=== PATIENT | female | born 1965 | race Caucasian/White ===

== ENCOUNTER → 2017-10-20 10:31 | Outpatient (CLI) | payer OTHER, SELFPAY ==
[2017-10-20 11:02] LABS: Influenza A and B by PCR Rapid Negative (Negative)
== END ==
PROVIDERS: Family Provider Family Medicine; PCP Family Medicine; Visit Provider Family Medicine
DX: R05 Cough (principal); R50.9 Fever, unspecified
CPT/HCPCS: 87400

== ENCOUNTER → 2017-10-23 15:27 | Outpatient (CLI) | payer OTHER, SELFPAY ==
--- NOTE | 2017-10-23 15:29 | DI.RAD.S_ITS ---
PROCEDURE: XR CHEST 2V INDICATIONS: cough TECHNIQUE: 2 views of the chest were acquired. COMPARISON: [facility], RG, XR RIBS UNILATERAL WITH CXR, 05/14/2003, 9:47. FINDINGS: Surgical changes and devices: None. Lungs and pleura: No pleural effusions or pneumothorax. Lungs are clear, aside from lingular and left basilar airspace opacity Mediastinum: Mediastinal contours are normal. Heart size is normal. Bones and chest wall: No suspicious bony abnormalities. Soft tissues appear unremarkable. IMPRESSION: Lingular and left basilar airspace opacity suggestive of aspiration or pneumonia. Underlying neoplasm cannot be excluded. A followup chest radiographs in approximately 4 weeks is recommended to document resolution. Dictated by: See Cm [facility] Interpreted: Shaw Sellers MD on 10/23/2017 at 15:40 Approved by: hSaw Sellers M.D. on 10/23/2017 at 17:26
== END ==
PROVIDERS: Family Provider Family Medicine; PCP Family Medicine; Visit Provider Family Medicine
DX: R05 Cough (principal)
CPT/HCPCS: 71046

== ENCOUNTER → 2017-12-06 08:32 | Outpatient (CLI) | payer OTHER, SELFPAY ==
--- NOTE | 2017-12-06 08:34 | DI.RAD.S_ITS ---
PROCEDURE: XR CHEST 2V INDICATIONS: Pneumonia, unspecified organism TECHNIQUE: 2 views of the chest were acquired. COMPARISON: [facility], CR, XR CHEST 2V, 10/23/2017, 15:09. FINDINGS: Surgical changes and devices: None. Lungs and pleura: No pleural effusions or pneumothorax. Lungs are clear. Mediastinum: Mediastinal contours are normal. Heart size is normal. Bones and chest wall: No suspicious bony abnormalities. T12 level mild to moderate compression fracture. This was also present in October of this year. Soft tissues appear unremarkable. IMPRESSION: No pneumonia found. Mild to moderate thoracolumbar junction compression fracture, involving what appears to be the T12 vertebral body, with mild focal kyphosis at that site. This has been previously present. Dictated by: Carlin Godfrey M.D. on 12/06/2017 at 8:56 Approved by: Carlin Godfrey M.D. on 12/06/2017 at 8:57
== END ==
PROVIDERS: PCP Internal Medicine; Visit Provider Internal Medicine
DX: J18.9 Pneumonia, unspecified organism (principal); M48.55XD Collapsed vertebra, not elsewhere classified, thoracolumbar region, subsequent encounter for fracture with routine healing; M40.295 Other kyphosis, thoracolumbar region
CPT/HCPCS: 71046

== ENCOUNTER → 2018-02-08 08:08 | Outpatient (CLI) | payer OTHER, SELFPAY | PROVIDERS: Family Provider Family Medicine; PCP Family Medicine | DX: Z23 Encounter for immunization (principal) | CPT/HCPCS: 90471; 90686 ==

== ENCOUNTER → 2018-06-06 07:37 | Outpatient (CLI) | payer OTHER, SELFPAY ==
[2018-06-06 09:06] LABS: Alanine Aminotransferase 30 IU/L (9-52); Albumin 4.8 g/dL (3.5-5.0); Albumin Globulin Ratio 1.5 (1.0-2.8); Alkaline Phosphatase 78 U/L (38-126); Aspartate Aminotransferase 27 IU/L (14-36); BUN Creatinine Ratio 27.1 (6-22); Bilirubin Total 0.3 mg/dL (0.2-1.3); Blood Urea Nitrogen 19 mg/dL (7-17); Calcium 9.6 mg/dL (8.4-10.2); Carbon Dioxide 29 mmol/L (22-32); Chloride 103 mmol/L (98-107); Cholesterol 230 mg/dL (140-199); Estimated Glomerular Filt Rate > 60.0 mL/min (>60); Globulin 3.1 g/dL (1.7-4.1); Glucose 85 mg/dL (70-100); HDL Cholesterol 70 mg/dL (40-60); HEMOLYSIS < 15 (0-50); LDL Cholesterol Calculated 148 mg/dL (<100); Potassium 4.1 mmol/L (3.4-5.1); Sodium 141 mmol/L (137-145); Total Protein 7.9 g/dL (6.3-8.2); Triglycerides 61 mg/dL (35-150)
== END ==
PROVIDERS: Family Provider Family Medicine; PCP Family Medicine; Visit Provider Family Medicine
DX: F41.9 Anxiety disorder, unspecified (principal); Z13.220 Encounter for screening for lipoid disorders
CPT/HCPCS: 36415; 80053; 80061

== ENCOUNTER → 2018-11-16 15:15 | Outpatient (CLI) | payer OTHER, SELFPAY ==
--- NOTE | 2018-11-16 15:17 | DI.RAD.S_ITS ---
PROCEDURE: XR FOOT LT MIN 3V INDICATIONS: 3 rd MTP pain, stress fracture?, neuroma TECHNIQUE: 3 views of the foot were acquired. COMPARISON: [facility], , FOOT 3V RIGHT, 09/30/2014, 11:39. FINDINGS: Bones: No fractures or dislocations. No suspicious bony lesions. Soft tissues: No tibiotalar joint effusion. Achilles tendon appears normal. IMPRESSION: No acute radiographic findings. If there is continued pain, followup exam or additional imaging such as MRI or CT could be performed for further assessment. Dictated by: Ashlie Llanos M.D. on 11/16/2018 at 16:37 Approved by: Ashlie Llanos M.D. on 11/16/2018 at 16:41
== END ==
PROVIDERS: PCP Family Medicine; Visit Provider Family Medicine
DX: M79.672 Pain in left foot (principal)
CPT/HCPCS: 73630

== ENCOUNTER → 2019-02-01 09:05 | Outpatient (CLI) | payer OTHER, SELFPAY ==
--- NOTE | 2019-02-01 | DI.MRI.S_ITS ---
PROCEDURE: MR FOOT LT WO/W CON INDICATIONS: L FOOT PAIN AND SWELLING TECHNIQUE: Noncontrast sagittal T1 spin echo and T2 fast spin echo with fat saturation, long-axis T1 spin echo and T2 fast spin echo with fat saturation; short-axis T1 spin echo, proton density fast spin echo, and T2 fast spin echo with fat saturation through the forefoot. Post-contrast short axis, long axis, and sagittal T1 spin echo with fat saturation through the forefoot. COMPARISON: [facility], CR, XR FOOT 3+ VIEWS LEFT, 01/04/2019, 10:54. [facility], CR, XR FOOT LT MIN 3V, 11/16/2018, 15:30. FINDINGS: Image quality: Diagnostic. Bones and joints: No acute fracture, dislocation, or suspicious osseous lesion is identified involving the osseous structures of the midfoot and forefoot. There is diffuse marrow edema evident involving the proximal and distal margins of the 3rd metatarsal. Subtle stress fracture could potentially be present involving the base of the 3rd metatarsal. A associated marrow edema involving the base of the 2nd metatarsal is present. There is also moderate marrow edema evident along the medial border of the navicular, likely degenerative or related to bone contusion. Mild marrow enhancement is evident involving the medial border of the navicular, base of the 2nd and 3rd metatarsals, and head of the 3rd metatarsal. No suspicious osseous lesions or suspicious osseous enhancement is evident. There may be a small 3rd metatarsophalangeal joint effusion. There also appear to be areas of marrow edema involving the anterior margin of the calcaneus and the talus. Moderate degenerative changes are noted involving the 1st metatarsophalangeal joint. No associated hallux valgus is evident. There may be a small joint effusion. Soft tissues: No soft tissue masses or suspicious soft tissue enhancement is identified. There is mild synovial enhancement evident involving the 3rd metatarsal phalangeal joint. No loculated fluid collections are present. There is a subcutaneous edema along the forefoot is present. The flexor and extensor tendons of the midfoot and forefoot appear to be within normal limits. Lisfranc ligament is not adequately seen. IMPRESSION: 1. Nonspecific marrow edema of the 3rd metatarsal may represent bone contusion, stress reaction, or developing stress fracture. Synovial enhancement and edema at the 3rd metatarsophalangeal joint is also present, raising the suspicion for potential synovitis and osteomyelitis. Local correlation is recommended. 2. Additional patchy areas of marrow edema involving the calcaneus, talus, and navicular may also represent stress reaction. 3. Soft tissue edema. No loculated fluid collections. 4. No suspicious osseous lesions or suspicious soft tissue mass. Dictated by: Shaw Sellers M.D. on 02/01/2019 at 13:52 Approved by: Shaw Sellers M.D. on 02/01/2019 at 14:01
== END ==
PROVIDERS: PCP Family Medicine; Visit Provider Podiatrist
DX: M79.672 Pain in left foot (principal); M79.89 Other specified soft tissue disorders
CPT/HCPCS: 73720

== ENCOUNTER → 2019-02-18 09:46 | Outpatient (CLI) | payer OTHER, SELFPAY | PROVIDERS: PCP Family Medicine; Visit Provider Family Medicine | DX: Z78.0 Asymptomatic menopausal state (principal); Z82.62 Family history of osteoporosis | CPT/HCPCS: 77080 ==

== ENCOUNTER → 2019-02-26 14:52 | Outpatient (CLI) | payer OTHER, SELFPAY | PROVIDERS: PCP Family Medicine | DX: Z23 Encounter for immunization (principal) | CPT/HCPCS: 90471; 90686 ==

== ENCOUNTER → 2019-04-12 08:01 | Outpatient (CLI) | payer OTHER, SELFPAY ==
--- NOTE | 2019-04-12 | DI.MG.S_ITS ---
BILATERAL DIGITAL SCREENING MAMMOGRAM 3D/2D WITH CAD: 04/12/2019 CLINICAL: Routine screening. Comparison is made to exams dated: 08/19/2017 mammogram, 07/01/2016 mammogram, 04/25/2014 mammogram, and 08/31/2017 mammogram - [facility]. The tissue of both breasts is extremely dense, which lowers the sensitivity of mammography. Current study was also evaluated with a Computer Aided Detection (CAD) system. There is a linear scar marker overlying the left breast. There are grouped punctate calcifications in the superior lateral left breast at middle depth. These are more prominent than on prior comparison exams. No other significant masses, calcifications, or other findings are seen in either breast. IMPRESSION: INCOMPLETE: NEEDS ADDITIONAL IMAGING EVALUATION The grouped punctate calcifications in the superior lateral left breast at middle depth are indeterminate. Magnification views as well as additional views with possible ultrasound are recommended. This exam was interpreted at Station ID: [id number]. NOTE: For mammograms, a report in lay terms will be sent to the patient. Approximately 15% of breast malignancies will not be visualized mammographically. In the management of a palpable breast mass, a negative mammogram must not discourage biopsy of a clinically suspicious lesion. Electronically Signed By: Oli Sarabia M.D. ecl/:04/12/2019 12:02:43 letter sent: Additional Imaging Needed ACR BI-RADS Category 0: Incomplete 3340F
== END ==
PROVIDERS: PCP Family Medicine; Visit Provider Family Medicine
DX: Z12.31 Encounter for screening mammogram for malignant neoplasm of breast (principal)
CPT/HCPCS: 77063; 77067

== ENCOUNTER → 2019-05-06 09:33 | Outpatient (CLI) | payer OTHER, SELFPAY ==
--- NOTE | 2019-05-06 | DI.MG.S_ITS ---
UNILATERAL LEFT DIGITAL DIAGNOSTIC MAMMOGRAM 3D/2D WITH ADDITIONAL VIEWS: 05/06/2019 CLINICAL: Additional evaluation requested from prior study. Comparison is made to exams dated: 04/12/2019 mammogram, 08/31/2017 mammogram, 08/19/2017 mammogram, and 07/01/2016 mammogram - [facility]. The tissue of left breast is extremely dense, which lowers the sensitivity of mammography. Previously identified grouped punctate calcifications in the superior lateral left breast at middle depth on comparison screening mammograms persists with additional views. Some of these calcifications demonstrate apparent layering on lateral views, suggestive of benign milk of calcium calcifications. IMPRESSION: INCOMPLETE: NEEDS ADDITIONAL IMAGING EVALUATION Previously identified grouped punctate calcifications in the superior lateral left breast at middle depth on comparison screening mammograms persists with additional views. Some of these calcifications demonstrate apparent layering on lateral views, suggestive of benign milk of calcium calcifications. A targeted ultrasound is recommended for further evaluation, and will be performed immediately following this exam. This exam was interpreted at Station ID: [id number]. NOTE: For mammograms, a report in lay terms will be sent to the patient. Approximately 15% of breast malignancies will not be visualized mammographically. In the management of a palpable breast mass, a negative mammogram must not discourage biopsy of a clinically suspicious lesion. Electronically Signed By: Oli Sarabia M.D. ecl/:05/06/2019 10:40:24 ACR BI-RADS Category 0: Incomplete 3340F
--- NOTE | 2019-05-06 09:35 | DI.US.S_ITS ---
LIMITED ULTRASOUND OF LEFT BREAST: 05/06/2019 CLINICAL: Patient returns today for additional evaluation. Comparison is made to exams dated: 05/06/2019 mammogram, 08/31/2017 mammogram, 04/12/2019 mammogram, 08/19/2017 mammogram, 07/01/2016 mammogram, and 04/25/2014 mammogram - [facility]. Color flow and real-time ultrasound of the left breast upper outer quadrant were performed. Dunaway scale images of the real-time examination were reviewed. No underlying breast mass or abnormality is identified. There is no ultrasound correlate for the previously identified grouped punctate calcifications in the superior lateral left breast at middle depth seen on comparison screening mammograms of 04/12/19 and diagnostic mammograms of 05/06/19. IMPRESSION: PROBABLY BENIGN No ultrasound correlate for the previously identified grouped punctate calcifications in the superior lateral left breast at middle depth. A follow-up diagnostic mammogram with possible ultrasound in 6 months is recommended to demonstrate stability. The patient is advised to monitor her breasts and to return sooner for re-evaluation should she feel anything grow or change. This exam was interpreted at Station ID: [id number]. Electronically Signed By: Oli Sarabia M.D. ecl/:05/06/2019 11:25:19 letter sent: Followup Recommended Ultrasound BI-RADS: 3 Probably benign
== END ==
PROVIDERS: PCP Family Medicine; Visit Provider Family Medicine
DX: R92.1 Mammographic calcification found on diagnostic imaging of breast (principal)
CPT/HCPCS: 76642; 77065; G0279

== ENCOUNTER → 2020-01-03 08:41 | Outpatient (CLI) | payer OTHER, SELFPAY ==
--- NOTE | 2020-01-03 08:56 | DI.MG.S_ITS ---
Patient Name: DONAVON WILLIS date: 1965 Sex: F Attending Physician: Elio Indications: Date: 01/03/2020 08:46 At the request of: REESE SULLIVAN Procedure: MM diagnostic mammo unilat LT UNILATERAL LEFT DIGITAL DIAGNOSTIC MAMMOGRAM 3D/2D SHORT-TERM FOLLOWUP: 01/03/2020 CLINICAL: Patient returns for a 6 month follow up of the left breast. Comparison is made to exams dated: 05/06/2019 mammogram, 04/12/2019 mammogram, and 08/19/2017 mammogram - [facility]. The tissue of left breast is heterogeneously dense. This may lower the sensitivity of mammography. Previously identified grouped punctate calcifications in the superior lateral left breast at middle depth on comparison screening mammograms persists with additional views and remains not significantly changed. Some of these calcifications demonstrate apparent layering on lateral views, suggestive of benign milk of calcium calcifications. No significant masses, calcifications, or other findings are seen in the breast. IMPRESSION: PROBABLY BENIGN No significant change in previously identified grouped punctate calcifications in the superior lateral left breast at middle depth on comparison screening mammograms persists with additional views. Some of these calcifications demonstrate apparent layering on lateral views, suggestive of benign milk of calcium calcifications. No sonographic abnormalities were seen. A follow-up left mammogram in 6 months is recommended to demonstrate continued stability. The patient will also be due for right breast screening mammogram at that time. Findings and recommendations were conveyed to the patient during today's examination. This exam was interpreted at Station ID: [id number]. NOTE: For mammograms, a report in lay terms will be sent to the patient. Approximately 15% of breast malignancies will not be visualized mammographically. In the management of a palpable breast mass, a negative mammogram must not discourage biopsy of a clinically suspicious lesion. Continued Report - Page 2 of 2 Patient Name: DONAVON WILLIS date: 1965 Sex: F Attending Physician: Elio Indications: Date: 01/03/2020 08:46 At the request of: REESE SULLIVAN Procedure: MM diagnostic mammo unilat LT Electronically Signed By: Jacinto Babb M.D. aty/:01/03/2020 09:41:20 letter sent: Followup Recommended ACR BI-RADS Category 3: Probably benign [id number]
== END ==
PROVIDERS: PCP Family Medicine; Referring Provider Family Medicine; Visit Provider Family Medicine
DX: R92.1 Mammographic calcification found on diagnostic imaging of breast (principal)
CPT/HCPCS: 77065; G0279

== ENCOUNTER → 2020-02-06 | Outpatient (CLI) | payer OTHER, SELFPAY | PROVIDERS: PCP Family Medicine; Referring Provider Internal Medicine; Visit Provider Internal Medicine | DX: Z23 Encounter for immunization (principal) | CPT/HCPCS: 90471; 90686 ==

== ENCOUNTER → 2020-07-03 08:43 | Outpatient (CLI) | payer OTHER, SELFPAY ==
--- NOTE | 2020-07-03 08:43 | DI.MG.S_ITS ---
BILATERAL DIGITAL DIAGNOSTIC MAMMOGRAM 3D/2D SHORT-TERM FOLLOW-UP: 07/03/2020 CLINICAL: Short term follow up of the left breast, due for bilateral imaging. Comparison is made to exams dated: 01/03/2020 mammogram, 05/06/2019 ultrasound, 05/06/2019 mammogram, 04/12/2019 mammogram, and 08/31/2017 mammogram - [facility]. The tissue of both breasts is heterogeneously dense. This may lower the sensitivity of mammography. There are grouped punctate calcifications in the left breast at 1 o'clock middle depth. These are not significantly changed. No other significant masses, calcifications, or other findings are seen in either breast. IMPRESSION: PROBABLY BENIGN The grouped punctate calcifications in the left breast are probably benign. A follow-up left mammogram in 6 months is recommended to demonstrate stability. This exam was interpreted at Station ID: [id number]. NOTE: For mammograms, a report in lay terms will be sent to the patient. Approximately 15% of breast malignancies will not be visualized mammographically. In the management of a palpable breast mass, a negative mammogram must not discourage biopsy of a clinically suspicious lesion. Electronically Signed By: Ziyad henley/marisa:07/03/2020 09:30:51 letter sent: Followup Recommended ACR BI-RADS Category 3: Probably benign [id number]
== END ==
PROVIDERS: PCP Family Medicine; Referring Provider Family Medicine; Visit Provider Family Medicine
DX: R92.8 Other abnormal and inconclusive findings on diagnostic imaging of breast (principal); R92.1 Mammographic calcification found on diagnostic imaging of breast; N63.0 Unspecified lump in unspecified breast
CPT/HCPCS: 77066; G0279

== ENCOUNTER → 2020-08-20 07:44 | Outpatient (CLI) | payer OTHER, SELFPAY ==
[2020-08-20 08:49] LABS: HEMOLYSIS < 15 (0-50); Potassium 3.9 mmol/L (3.4-5.1)
[2020-08-20 08:50] LABS: Alanine Aminotransferase 25 IU/L (<35); Albumin 4.5 g/dL (3.5-5.0); Albumin Globulin Ratio 1.6 (1.0-2.8); Alkaline Phosphatase 81 U/L (38-126); Aspartate Aminotransferase 31 IU/L (14-36); BUN Creatinine Ratio 29.3 (6-22); Bilirubin Total 0.2 mg/dL (0.2-1.3); Blood Urea Nitrogen 17 mg/dL (7-17); Calcium 9.7 mg/dL (8.4-10.2); Carbon Dioxide 25 mmol/L (22-32); Chloride 105 mmol/L (98-107); Cholesterol 213 mg/dL (140-199); Estimated Glomerular Filt Rate > 60.0 mL/min (>60); Globulin 2.9 g/dL (1.7-4.1); Glucose 102 mg/dL (70-100); HDL Cholesterol 75 mg/dL (40-60); LDL Cholesterol Calculated 129 mg/dL (<100); Sodium 138 mmol/L (137-145); Total Protein 7.4 g/dL (6.3-8.2); Triglycerides 46 mg/dL (35-150)
== END ==
PROVIDERS: PCP Family Medicine; Referring Provider Family Medicine; Visit Provider Family Medicine
DX: E78.5 Hyperlipidemia, unspecified (principal)
CPT/HCPCS: 36415; 80053; 80061

== ENCOUNTER → 2021-02-11 | Outpatient (CLI) | payer OTHER, SELFPAY | PROVIDERS: PCP Family Medicine; Referring Provider Internal Medicine; Visit Provider Internal Medicine | DX: Z23 Encounter for immunization (principal) | CPT/HCPCS: 90471; 90686 ==

== ENCOUNTER → 2021-05-14 08:49 | Outpatient (CLI) | payer OTHER, SELFPAY ==
--- NOTE | 2021-05-14 | DI.MG.S_ITS ---
BILATERAL DIGITAL DIAGNOSTIC MAMMOGRAM 3D/2D SHORT-TERM FOLLOW-UP: 05/14/2021 CLINICAL: Short term follow up of the left breast, due for bilateral imaging. Comparison is made to exams dated: 07/03/2020 mammogram, 01/03/2020 mammogram, 05/06/2019 mammogram, and 04/12/2019 mammogram - [facility]. The tissue of both breasts is heterogeneously dense. This may lower the sensitivity of mammography. There also are stable benign grouped punctate calcifications in the left breast at 1 o'clock middle depth. No other significant masses, calcifications, or other findings are seen in either breast. IMPRESSION: BENIGN There is no mammographic evidence of malignancy. Return to annual mammogram screening schedule is recommended. This exam was interpreted at Station ID: [id number]. NOTE: For mammograms, a report in lay terms will be sent to the patient. Approximately 15% of breast malignancies will not be visualized mammographically. In the management of a palpable breast mass, a negative mammogram must not discourage biopsy of a clinically suspicious lesion. Electronically Signed By: Pelon Maciel acr/:05/19/2021 06:49:49 letter sent: Normal Exam ACR BI-RADS Category 2: Benign Finding(s) 3342F
== END ==
PROVIDERS: PCP Family Medicine; Referring Provider Family Medicine; Visit Provider Family Medicine
DX: R92.8 Other abnormal and inconclusive findings on diagnostic imaging of breast (principal)
CPT/HCPCS: 77066; G0279

== ENCOUNTER → 2021-05-20 11:48 | Outpatient (CLI) | payer OTHER, SELFPAY ==
[2021-05-20 12:25] LABS: COVID19 -Nasal RAPID Negative (Negative)
== END ==
PROVIDERS: PCP Family Medicine; Referring Provider Nurse Practitioner Family; Visit Provider Nurse Practitioner Family
DX: Z20.822 Contact with and (suspected) exposure to COVID-19 (principal); R05.9 Cough, unspecified
CPT/HCPCS: 87635

== ENCOUNTER → 2021-08-06 08:17 | Outpatient (CLI) | payer OTHER, SELFPAY ==
[2021-08-06 09:19] LABS: Add Manual Diff / Slide Review NO; Basophils Absolute Auto 0 /uL (0-100); Basophils Percent Auto 0.5 % (0-2); Eosinophils Absolute Auto 100 /uL (0-450); Eosinophils Percent Auto 4.2 % (2-4); Hematocrit 40.6 % (36-46); Hemoglobin 13.5 g/dL (12.0-16.0); Lymphocytes Absolute Auto 1200 /uL (1100-4500); Lymphocytes Percent Auto 37.8 % (25-40); Mean Corpuscular HGB Conc 33.3 % (30-36); Mean Corpuscular Hemoglobin 27.6 PG (26-34); Monocytes Absolute Auto 300 /uL (0-900); Monocytes Percent Auto 9.3 % (3-14); Neutrophils Absolute Auto 1600 /uL (1500-7000); Neutrophils Percent Auto 48.2 % (50-75); Platelet Count 399 X10^3/uL (150-400); Red Blood Cell Count 4.89 X10^6/uL (4.0-5.2); Red Cell Distribution Width 13.5 % (11.6-14.8); White Blood Cell Count 3.3 X10^3/uL (4.5-11.0)
[2021-08-06 09:26] LABS: Hemoglobin A1C% w Est Avg Glu 5.9 % (4.0-6.0)
[2021-08-06 09:47] LABS: Alanine Aminotransferase 22 IU/L (<35); Albumin 4.7 g/dL (3.5-5.0); Albumin Globulin Ratio 1.7 (1.0-2.8); Alkaline Phosphatase 92 U/L (38-126); Aspartate Aminotransferase 31 IU/L (14-36); Bilirubin Total 0.4 mg/dL (0.2-1.3); Blood Urea Nitrogen 17 mg/dL (7-17); Calcium 9.9 mg/dL (8.4-10.2); Carbon Dioxide 30 mmol/L (22-32); Chloride 107 mmol/L (98-107); Estimated Glomerular Filt Rate > 60.0 mL/min (>60); Globulin 2.7 g/dL (1.7-4.1); Glucose 84 mg/dL (70-100); HEMOLYSIS < 15 (0-50); Potassium 4.9 mmol/L (3.4-5.1); Sodium 143 mmol/L (137-145); Total Protein 7.4 g/dL (6.3-8.2)
[2021-08-06 10:18] LABS: TSH w/ Reflex to FT4 2.13 uIU/mL (0.47-4.68)
== END ==
PROVIDERS: PCP Family Medicine; Referring Provider Family Medicine; Visit Provider Family Medicine
DX: E55.9 Vitamin D deficiency, unspecified (principal); E78.5 Hyperlipidemia, unspecified; F41.9 Anxiety disorder, unspecified; G47.33 Obstructive sleep apnea (adult) (pediatric); R53.83 Other fatigue; Z83.3 Family history of diabetes mellitus
CPT/HCPCS: 36415; 80053; 82306; 83036; 84443; 85025

== ENCOUNTER → 2021-09-17 09:49 | Outpatient (CLI) | payer OTHER, SELFPAY ==
[2021-09-17 11:47] LABS: Cholesterol 217 mg/dL (140-199); HDL Cholesterol 67 mg/dL (40-60); LDL Cholesterol Calculated 139 mg/dL (<100); Triglycerides 53 mg/dL (35-150)
== END ==
PROVIDERS: PCP Family Medicine; Referring Provider Family Medicine; Visit Provider Family Medicine
DX: E78.5 Hyperlipidemia, unspecified (principal)
CPT/HCPCS: 36415; 80061

== ENCOUNTER → 2021-12-03 08:56 | Outpatient (CLI) | payer OTHER, SELFPAY ==
--- NOTE | 2021-12-03 08:58 | DI.RAD.S_ITS ---
PROCEDURE: XR HIP W PEL IF DONE LT 2V INDICATIONS: chronic left hip to thigh pain after lat upper thigh injury TECHNIQUE: AP pelvis with lateral view(s) of the left hip(s). COMPARISON: None. FINDINGS: Bones: No fractures or dislocations. Pelvic ring appears intact. No suspicious bony lesions. No significant degenerative changes. Soft tissues: The visualized bowel gas pattern is normal. No suspicious soft tissue calcifications. IMPRESSION: Normal pelvis and left hip Dictated by: Pelon Maciel M.D. on 12/03/2021 at 13:15 Approved by: Pelon Maciel M.D. on 12/03/2021 at 13:18
== END ==
PROVIDERS: PCP Pediatrics; Referring Provider Pediatrics; Visit Provider Pediatrics
DX: M79.652 Pain in left thigh (principal); R10.32 Left lower quadrant pain
CPT/HCPCS: 73502

== ENCOUNTER → 2021-12-16 16:14 | Outpatient (CLI) | payer OTHER, SELFPAY ==
--- NOTE | 2021-12-16 16:15 | DI.US.S_ITS ---
PROCEDURE: US EXTREMITY NONVASC LOWER LT INDICATIONS: left lateral thigh pain and knot s/p injury 2020 TECHNIQUE: Real-time scanning was performed of the left lateral proximal mid thigh , with image documentation. COMPARISON: None. FINDINGS: Mild amount of edema seen within the region of interest and no definitive mass or discrete fluid collection is seen. IMPRESSION: Edema within the soft tissues in the region of interest. Dictated by: See Cm Jean Carlos Interpreted: Ziyad Coronado MD on 12/16/2021 at 17:06 Transcribed by: MACEY on 12/16/2021 at 17:07 Approved by: Ziyad Coronado M.D. on 12/17/2021 at 8:19
--- NOTE | 2021-12-16 16:15 | DI.US.S_ITS ---
PROCEDURE: US ABDOMEN LIMITED INDICATIONS: left inguinal pain, ? hernia vs other TECHNIQUE: Real-time focused scanning was performed of the abdomen, with image documentation. COMPARISON: None. FINDINGS: Normal appearing left inguinal lymph nodes are visualized in the area of interest. No discrete mass lesion or fluid collection. No inguinal hernia. IMPRESSION: Normal appearing left inguinal lymph nodes. No sonographic abnormalities. Dictated by: Ashlie Llanos M.D. on 12/16/2021 at 17:27 Approved by: Ashlie Llanos M.D. on 12/16/2021 at 17:28
== END ==
PROVIDERS: PCP Pediatrics; Referring Provider Pediatrics; Visit Provider Pediatrics
DX: R10.32 Left lower quadrant pain (principal); M79.652 Pain in left thigh
CPT/HCPCS: 76705; 76882

== ENCOUNTER → 2022-02-22 16:27 | Outpatient (CLI) | payer OTHER, SELFPAY | PROVIDERS: PCP Pediatrics; Referring Provider Internal Medicine; Visit Provider Internal Medicine | DX: Z23 Encounter for immunization (principal) | CPT/HCPCS: 90471; 90686 ==

== ENCOUNTER 2022-06-17 11:54 | Day surgery (SDC) | payer OTHER, SELFPAY ==
--- NOTE | 2022-06-17 | PATH_ITS ---
[facility] Accession Number: [id number] No. of containers..01 Tissue . 01 Material submitted: . colon - RIGHT COLON POLYP . 01 Diagnosis: Right Colon Polyp, Biopsy: Colonic mucosa with benign lymphoid aggregate. MRV 06/23/2022 1408 Local . 01 Electronically signed: . Leny Bergeron MD, Pathologist NPI- [id number] . 01 Gross description: . RIGHT COLON POLYP: Received in formalin is 1 fragment(s) of castillo, soft tissue measuring 0.4 x 0.2 x 0.1 cm submitted entirely in 1 cassette(s) /CPE 06/18/2022 0627 Local . 01 Pathologist provided ICD-10: Z12.11, K63.89 . 01 CPT . 296251 Specimen Comment: A courtesy copy of this report has been sent to [facility] Pathology Performed at: 01 [facility] [address] [place] [address] [address], [place], [place] [id number] MD Dario Blanco MD Phone: [phone]
[2022-06-17 12:05] VITALS: BP 135/82; PULSE 60; RESP 18; TEMP 36.3; O2SAT 100; BMI 24.4
[2022-06-17] MEDS: LACTATED RINGERS 1,000 ML 150 ML IV (12:26)
--- NOTE | 2022-06-17 13:29 | PM.HP.1 ---
History of Present Illness History of Present Illness Chief complaint: Colonoscopy Narrative: Mrs. Johns presents today for a screening colonoscopy. She has no family history of colon cancer. Has no concerning symptoms of bleeding or changes in bowel habits. She says her 1st colonoscopy. She has no questions or concerns she is had an appendectomy but no other abdominal surgeries. Prep went well Patient History Medical History (Updated 06/17/22 @ 13:31 by Barby Paris MD) Abnormal mammogram of left breast Anxiety (1993) Chicken pox (1982) Chronic headaches Depression (1993) Insomnia Left groin pain Left thigh pain Menopause (~2018) Metatarsal stress fracture (~1983) Obstructive sleep apnea (~2015) Other and unspecified hyperlipidemia Restless leg syndrome Right fibular fracture (~2014) Shoulder pain (2004) Snoring (2005) Twin delivered vaginally Surgical History Anesthesia Status post appendectomy (1991) Family & Social History Family History Daughter Age: 28 Anxiety and depression Father Diabetes mellitus High cholesterol Heart disease Kidney failure Hypertension Charcot foot due to diabetes mellitus Mother Age: 83 Anxiety and depression Daughter Age: 28 Depression Grandmother Depression Grandmother Depression Social History: household members spouse Tobacco & Substance use: Smoking Status Never smoker alcohol intake current alcohol intake frequency holiday/special occasion Substance Use Type does not use Meds Home Medications and Allergies Home Medications Medication Instructions Recorded Confirmed Type cholecalciferol (vitamin D3) 50 2,000 unit PO DAILY 10/20/17 12/03/21 History mcg (2,000 unit) capsule multivitamin (Multiple Vitamins 1 tab PO DAILY 10/20/17 12/03/21 History tablet) magnesium 250 mg tablet 500 mg PO DAILY 02/08/18 12/03/21 History varicella-zoster glycoE [id number] 50 mcg IM ONCE #1 ea 06/11/18 12/03/21 Rx adj(PF) 50 mcg/0.5 mL IM susp, kit (Shingrix (PF)) Resmed Airsense 10 CPAP #1 ea 12/04/18 12/03/21 History bupropion HCl 75 mg tablet 75 mg PO QDAY #90 tabs 04/27/21 12/03/21 Rx citalopram 20 mg tablet See Rx Instructions .Route 11/16/22 Rx .COMPLEX #90 tabs sodium,potassium,mag sulfates 17.5 See Rx Instructions PO .COMPLEX 05/27/22 Rx gram-3.13 gram-1.6 gram oral soln #354 mL (Suprep Bowel Prep Kit) zolpidem 5 mg tablet See Rx Instructions .Route 05/31/22 05/31/22 Rx .COMPLEX #15 tabs Allergies Allergy/AdvReac Type Severity Reaction Status Date / Time No Known Drug Allergies Allergy Verified 06/17/22 12:13 Exam Vital Signs (past 8 hours): - 06/17/22 12:05 Temperature 97.3 F L Pulse Rate 60 Respiratory Rate 18 Blood Pressure 135/82 Pulse Oximetry 100 Oxygen Delivery Method Room Air Oxygen Delivery Method Room Air Const General: cooperative, healthy appearing and comfortable HENMT Head: normal to inspection Resp Effort & Inspection: normal respiratory effort and able to speak in complete sentences Cardio Pulses: radial pulses present GI Palpation: soft and No tender Extrem General: normal to inspection and full ROM Assessment & Plan Assessment and plan (1) Screening for colon cancer: Status: Acute Assessment & Plan narrative: Patient presents today for colon cancer screening. She has no family history of colon cancer and no reason to believe an increased risk at this time. She understands the risks benefits and alternatives to a screening colonoscopy and I discussed specifically with her possibility though rare perforation or an incomplete exam. She understands and would like to proceed today. Time Spent With Patient Critical Care time: I spent a total of [] minutes of critical care time on this patient's care today; this time is exclusive of procedural time.
[2022-06-17 14:23] VITALS: BP 119/70; PULSE 55; RESP 12; TEMP 36.2; O2SAT 99
[2022-06-17 14:28] VITALS: BP 104/69; PULSE 62; RESP 14; O2SAT 96
--- NOTE | 2022-06-17 14:28 | P.OP.COLON_ITS ---
Operative Date/Time/Diagnoses Date of procedure: 06/17/22 Pre-op diagnosis: Screening for colon cancer Post-op diagnosis: same Procedure & Clinicians Study performed: Colonoscopy and biopsy Surgeon: Barby Paris Procedure Notes Procedure in detail: Patient was taken to the endoscopy suite and placed in a left lateral decubitus position. Time-out was performed. Conscious sedation was performed with the help of the anesthesiologist. Digital rectal exam was performed and there were no strictures or masses. Colonoscope was introduced into the anal canal and advanced through. There was some difficulty reaching the cecum and the colon appeared to be quite long I used a stiffener and some abdominal pressure but was ultimately able to arrive in the cecum. A photograph was taken of the appendiceal orifice. On withdrawal of the scope there was a very small polyp seen in the right colon just as we were leaving the cecum. This was biopsied with the forceps and sent for pathology. The remainder of the colon was free of any pathology after thorough inspection with a total withdrawal time of 17 minutes. Prep was of very good [place] bowel prep score of 3.
[2022-06-17 14:33] VITALS: BP 130/72; PULSE 60; RESP 12; TEMP 36.3; O2SAT 99
[2022-06-17 14:37] VITALS: BP 138/68; PULSE 51; RESP 16; O2SAT 99
== END 2022-06-17 14:55 | disposition home or self-care (01) ==
PROVIDERS: PCP Family Medicine; Referring Provider Surgery; Visit Provider Surgery
PROC: 0DJD8ZZ Inspection of Lower Intestinal Tract, Via Natural or Artificial Opening Endoscopic (ICD-10-PCS; CPT 45378; principal; 2022-06-17 13:00)
DX: Z12.11 Encounter for screening for malignant neoplasm of colon (principal)
CPT/HCPCS: 45380; J2704

== ENCOUNTER → 2022-06-20 16:28 | Outpatient (CLI) | payer OTHER, SELFPAY ==
--- NOTE | 2022-06-20 | DI.MG.S_ITS ---
BILATERAL DIGITAL SCREENING MAMMOGRAM 3D/2D WITH CAD: 06/20/2022 CLINICAL: Routine screening. Comparison is made to exams dated: 05/14/2021 mammogram, 07/03/2020 mammogram, and 01/03/2020 mammogram - [facility]. Both breasts are heterogeneously dense, which may obscure small masses (category c / 51-75% glandular tissue). Current study was also evaluated with a Computer Aided Detection (CAD) system. There is a possible 0.6 cm oval asymmetry in the right breast posterior depth inferior region seen on the mediolateral oblique view only. This is more prominent. There is possible subtle architectural distortion associated with the asymmetry. No other significant masses, calcifications, or other findings are seen in either breast. IMPRESSION: INCOMPLETE: NEEDS ADDITIONAL IMAGING EVALUATION The possible 0.6 cm oval asymmetry in the right breast is indeterminate. Additional views with possible ultrasound are recommended. Based on the Tyrer Cuzick model (a risk assessment model) the patient's lifetime risk is 13.9% and her 10 year risk is 4.6%. According to the ACR, ACS, and NCCN guidelines, an annual breast MRI exam along with mammogram is recommended if the patient's lifetime risk is 20% or greater. This exam was interpreted at Station ID: [id number]. NOTE: For mammograms, a report in lay terms will be sent to the patient. Approximately 15% of breast malignancies will not be visualized mammographically. In the management of a palpable breast mass, a negative mammogram must not discourage biopsy of a clinically suspicious lesion. Electronically Signed By: Jacinto Babb M.D. aty/:06/21/2022 07:39:20 letter sent: Additional Imaging Needed ACR BI-RADS Category 0: Incomplete 3340F
== END ==
PROVIDERS: PCP Family Medicine; Referring Provider Family Medicine; Visit Provider Family Medicine
DX: Z12.31 Encounter for screening mammogram for malignant neoplasm of breast (principal)
CPT/HCPCS: 77063; 77067

== ENCOUNTER → 2022-07-11 08:52 | Outpatient (CLI) | payer OTHER, SELFPAY ==
--- NOTE | 2022-07-11 | DI.MG.S_ITS ---
UNILATERAL RIGHT DIGITAL DIAGNOSTIC MAMMOGRAM 3D/2D WITH ADDITIONAL VIEWS: 07/11/2022 CLINICAL: Additional evaluation requested from prior study. Comparison is made to exams dated: 06/20/2022 mammogram, 05/14/2021 mammogram, and 07/03/2020 mammogram - [facility]. The right breast is heterogeneously dense, which may obscure small masses (category c / 51-75% glandular tissue). The previously described possible 0.6 cm oval asymmetry in the right breast posterior depth inferior region seen on the mediolateral oblique view only is no longer seen and most likely is fibroglandular tissue. The previously noted asymmetry disperses with additional views and is consistent with summation artifact. No other significant masses or calcifications are seen in the breast. IMPRESSION: BENIGN The previously described asymmetry disperses with additional views and is consistent with summation artifact. There is no mammographic evidence of malignancy. A 1 year screening mammogram is recommended. Based on the Tyrer Cuzick model (a risk assessment model) the patient's lifetime risk is 13.7% and her 10 year risk is 4.8%. According to the ACR, ACS, and NCCN guidelines, an annual breast MRI exam along with mammogram is recommended if the patient's lifetime risk is 20% or greater. Findings and recommendations were conveyed to the patient during today's evaluation. This exam was interpreted at Station ID: [id number]. NOTE: For mammograms, a report in lay terms will be sent to the patient. Approximately 15% of breast malignancies will not be visualized mammographically. In the management of a palpable breast mass, a negative mammogram must not discourage biopsy of a clinically suspicious lesion. Electronically Signed By: Jacinto Babb M.D. at/:07/11/2022 09:15:04 letter sent: Normal Exam ACR BI-RADS Category 2: Benign Finding(s) 3342F
--- NOTE | 2022-07-11 09:23 | DI.RAD.S_ITS ---
PROCEDURE: XR TIBIA FIBULA LT 2V INDICATIONS: Left leg pain TECHNIQUE: 2 views of the tibia and fibula were acquired. COMPARISON: None. FINDINGS: Bones: No fractures or dislocations. No suspicious bony lesions. Soft tissues: No suspicious soft tissue calcifications or masses. IMPRESSION: No evidence acute bony abnormality of the left tibia and fibula Dictated by: Yvan Mann M.D. on 07/11/2022 at 12:20 Approved by: Yvan Mann M.D. on 07/11/2022 at 12:20
--- NOTE | 2022-07-11 09:23 | DI.RAD.S_ITS ---
PROCEDURE: XR FEMUR LT MIN 2V INDICATIONS: Left leg pain TECHNIQUE: AP and lateral views of the femur were acquired. COMPARISON: None. FINDINGS: Bones: No fractures or dislocations. No suspicious bony lesions. Soft tissues: No suspicious soft tissue calcifications or masses. IMPRESSION: No evidence acute bony abnormality of the left tibia and fibula Dictated by: Yvan Mann M.D. on 07/11/2022 at 12:20 Approved by: Yvan Mann M.D. on 07/11/2022 at 12:23
== END ==
PROVIDERS: PCP Family Medicine; Referring Provider Family Medicine; Visit Provider Family Medicine
DX: R92.8 Other abnormal and inconclusive findings on diagnostic imaging of breast (principal); S89.90XA Unspecified injury of unspecified lower leg, initial encounter; M79.605 Pain in left leg; R10.32 Left lower quadrant pain; X58.XXXA Exposure to other specified factors, initial encounter
CPT/HCPCS: 73552; 73590; 77065; G0279

== ENCOUNTER → 2022-08-05 18:41 | Outpatient (CLI) | payer OTHER, SELFPAY ==
--- NOTE | 2022-08-05 18:45 | DI.MRI.S_ITS ---
PROCEDURE: MR FEMUR LT WO CON INDICATIONS: Left Leg Pain TECHNIQUE: Noncontrast coronal and sagittal T1 spin echo and STIR; axial T1 spin echo and T2 fast spin echo with fat saturation through the left femur. COMPARISON: [facility], CR, XR FEMUR LT MIN 2V, 07/11/2022, 10:41. FINDINGS: Image quality: Excellent. Bones: The visualized bone marrow demonstrates normal signal on all sequences. The overlying cortex appears intact. No fractures lines or intra-osseous lesions. Soft tissues: Moderate T2 signal elevation within the proximal hamstring tendon at the ischial origin. The scanned muscles demonstrate otherwise normal overall bulk and internal signal. Subcutaneous tissues appear normal as well. No soft tissue masses are present. There is a small knee joint effusion and Romero's cyst. IMPRESSION: 1. Moderate hamstring tendinopathy. 2. No osseous abnormality. 3. Small knee joint effusion and Romero's cyst. Dictated by: Makenzie Whaley M.D. on 08/08/2022 at 8:56 Approved by: Makenzie Whaley M.D. on 08/08/2022 at 8:58
== END ==
PROVIDERS: PCP Family Medicine; Referring Provider Family Medicine; Visit Provider Family Medicine
DX: M79.652 Pain in left thigh (principal); M71.22 Synovial cyst of popliteal space [Baker], left knee; M25.462 Effusion, left knee; S89.90XA Unspecified injury of unspecified lower leg, initial encounter; R10.32 Left lower quadrant pain
CPT/HCPCS: 73718

== ENCOUNTER → 2022-09-10 09:58 | Outpatient (CLI) | payer OTHER, SELFPAY ==
[2022-09-10 10:49] LABS: Hematocrit 39.3 % (36-46); Hemoglobin 13.2 g/dL (12.0-16.0); Mean Corpuscular HGB Conc 33.6 % (30-36); Mean Corpuscular Hemoglobin 27.7 PG (26-34); Mean Corpuscular Volume 82.4 fL (80-100); Platelet Count 367 X10^3/uL (150-400); Red Blood Cell Count 4.77 X10^6/uL (4.0-5.2); Red Cell Distribution Width 14.1 % (11.6-14.8); White Blood Cell Count 3.4 X10^3/uL (4.5-11.0)
[2022-09-10 11:11] LABS: Alanine Aminotransferase 26 IU/L (<35); Albumin 4.4 g/dL (3.5-5.0); Albumin Globulin Ratio 1.5 (1.0-2.8); Alkaline Phosphatase 104 U/L (38-126); Aspartate Aminotransferase 28 IU/L (14-36); BUN Creatinine Ratio 27.8 (6-22); Bilirubin Total 0.2 mg/dL (0.2-1.3); Blood Urea Nitrogen 20 mg/dL (7-17); Calcium 9.5 mg/dL (8.4-10.2); Carbon Dioxide 28 mmol/L (22-32); Chloride 104 mmol/L (98-107); Cholesterol 210 mg/dL (140-199); Estimated Glomerular Filt Rate > 60 mL/min (>60); Globulin 2.9 g/dL (1.7-4.1); Glucose 88 mg/dL (70-100); HDL Cholesterol 82 mg/dL (40-60); HEMOLYSIS < 15 (0-50); LDL Cholesterol Calculated 118 mg/dL (<100); Potassium 4.8 mmol/L (3.4-5.1); Sodium 139 mmol/L (137-145); Total Protein 7.3 g/dL (6.3-8.2); Triglycerides 48 mg/dL (35-150)
[2022-09-10 11:25] LABS: Vitamin D 25 Hydroxy (D3) 56.4 ng/mL (30.0-100.0)
[2022-09-10 11:44] LABS: Ferritin 23 ng/mL (11-264)
[2022-09-11 21:36] LABS: Sex Hormone Binding Globulin 73.6 nmol/L (17.3-125.0)
[2022-09-17 23:00] LABS: Estrogen 52 pg/mL (40-244)
[2022-09-19 18:34] LABS: Percent Free Testosterone 0.87 % (0.50-2.80); Testosterone Free 0.14 ng/dL (0.10-0.85); Testosterone Total 15.7 ng/dL (.)
[2022-09-20 07:50] LABS: % Free Progesterone 1.8 % (.); Free Progesterone <0.18 ng/dL (.); Progesterone, Serum <10 ng/dL (.)
== END ==
PROVIDERS: PCP Family Medicine; Referring Provider Family Medicine; Visit Provider Family Medicine
DX: E55.9 Vitamin D deficiency, unspecified (principal); E78.5 Hyperlipidemia, unspecified; F32.9 Major depressive disorder, single episode, unspecified; F41.9 Anxiety disorder, unspecified; G25.81 Restless legs syndrome; R53.83 Other fatigue; Z78.0 Asymptomatic menopausal state
CPT/HCPCS: 36415; 80053; 80061; 82306; 82672; 82728; 84144; 84270; 84402; 84403; 84999; 85027

== ENCOUNTER → 2023-03-09 | Outpatient (CLI) | payer OTHER, SELFPAY | PROVIDERS: PCP Family Medicine; Referring Provider Family Medicine; Visit Provider Family Medicine | DX: Z23 Encounter for immunization (principal) | CPT/HCPCS: 90471; 90686 ==

== ENCOUNTER → 2023-06-27 14:42 | Outpatient (CLI) | payer OTHER, SELFPAY ==
--- NOTE | 2023-06-27 14:43 | DI.MG.S_ITS ---
BILATERAL DIGITAL SCREENING MAMMOGRAM 3D/2D WITH CAD: 06/27/2023 CLINICAL: Routine screening. Comparison is made to exams dated: 07/11/2022 mammogram, 06/20/2022 mammogram, 05/14/2021 mammogram, and 07/03/2020 mammogram - [facility]. Both breasts are heterogeneously dense, which may obscure small masses (category c / 51-75% glandular tissue). Current study was also evaluated with a Computer Aided Detection (CAD) system. No significant masses, calcifications, or other findings are seen in either breast. There has been no significant interval change. IMPRESSION: NEGATIVE There is no mammographic evidence of malignancy. A 1 year screening mammogram is recommended. Based on the Tyrer Cuzick model (a risk assessment model) the patient's lifetime risk is 13.7% and her 10 year risk is 4.8%. According to the ACR, ACS, and NCCN guidelines, an annual breast MRI exam along with mammogram is recommended if the patient's lifetime risk is 20% or greater. This exam was interpreted at Station ID: [id number]. NOTE: For mammograms, a report in lay terms will be sent to the patient. Approximately 15% of breast malignancies will not be visualized mammographically. In the management of a palpable breast mass, a negative mammogram must not discourage biopsy of a clinically suspicious lesion. Electronically Signed By: Ashlie fletcher/marisa:06/27/2023 17:14:30 letter sent: Normal Exam ACR BI-RADS Category 1: Negative 3341F
== END ==
LOC: MAMMO 14:42
PROVIDERS: PCP Family Medicine; Referring Provider Family Medicine; Visit Provider Family Medicine
DX: Z12.31 Encounter for screening mammogram for malignant neoplasm of breast (principal); R92.333 Mammographic heterogeneous density, bilateral breasts
CPT/HCPCS: 77063; 77067

== ENCOUNTER → 2023-09-10 09:45 | Outpatient (CLI) | payer OTHER, SELFPAY | PROVIDERS: PCP Family Medicine; Visit Provider Physician Assistant Surgical | DX: R10.9 Unspecified abdominal pain (principal) | CPT/HCPCS: 87086 ==

== ENCOUNTER → 2023-10-06 09:19 | Outpatient (CLI) | payer OTHER, SELFPAY ==
[2023-10-06 10:46] LABS: Add Manual Diff / Slide Review NO; Basophils Absolute Auto 100 /uL (0-100); Basophils Percent Auto 3.7 % (0-2); Eosinophils Absolute Auto 200 /uL (0-450); Eosinophils Percent Auto 6.3 % (2-4); Hematocrit 39.5 % (36-46); Hemoglobin 13.2 g/dL (12.0-16.0); Lymphocytes Absolute Auto 1300 /uL (1100-4500); Mean Corpuscular HGB Conc 33.4 % (30-36); Mean Corpuscular Hemoglobin 28.5 PG (26-34); Mean Corpuscular Volume 85.3 fL (80-100); Monocytes Absolute Auto 300 /uL (0-900); Monocytes Percent Auto 9.2 % (3-14); Neutrophils Absolute Auto 1500 /uL (1500-7000); Neutrophils Percent Auto 42.8 % (50-75); Platelet Count 429 X10^3/uL (150-400); Red Blood Cell Count 4.64 X10^6/uL (4.0-5.2); Red Cell Distribution Width 13.5 % (11.6-14.8); White Blood Cell Count 3.4 X10^3/uL (4.5-11.0)
== END ==
PROVIDERS: PCP Family Medicine; Referring Provider Family Medicine; Visit Provider Family Medicine
DX: Z51.81 Encounter for therapeutic drug level monitoring (principal); Z79.890 Hormone replacement therapy
CPT/HCPCS: 36415; 82672; 84144; 84999; 85025

== ENCOUNTER → 2024-01-05 09:28 | Outpatient (CLI) | payer OTHER, SELFPAY ==
--- NOTE | 2024-01-05 09:29 | DI.MG.S_ITS ---
UNILATERAL LEFT DIGITAL DIAGNOSTIC MAMMOGRAM 3D/2D: 01/05/2024 CLINICAL: Diffuse left breast pain. Comparison is made to exams dated: 06/27/2023 mammogram, 06/20/2022 mammogram, and 05/14/2021 mammogram - [facility]. The left breast is heterogeneously dense, which may obscure small masses (category c / 51-75% glandular tissue). Left mammograms are stable. No significant masses or calcifications are seen in the breast. Specifically, no finding to explain the patient's pain. There are stable benign grouped fine calcifications in the left breast at 1 o'clock middle depth. IMPRESSION: INCOMPLETE: NEEDS ADDITIONAL IMAGING EVALUATION There is no abnormality seen in the left breast to correspond with the pain in the upper outer quadrant to axillary tail. Ultrasound is recommended for full evaluation of this area. This was performed immediately following this exam. Based on the Tyrer Cuzick model (a risk assessment model) the patient's lifetime risk is 13.5% and her 10 year risk is 5.0%. According to the ACR, ACS, and NCCN guidelines, an annual breast MRI exam along with mammogram is recommended if the patient's lifetime risk is 20% or greater. This exam was interpreted at Station ID: [id number]. NOTE: For mammograms, a report in lay terms will be sent to the patient. Approximately 15% of breast malignancies will not be visualized mammographically. In the management of a palpable breast mass, a negative mammogram must not discourage biopsy of a clinically suspicious lesion. Electronically Signed By: Karin bocanegra/:01/05/2024 10:17:26 ACR BI-RADS Category 0: Incomplete 3340F
--- NOTE | 2024-01-05 09:29 | DI.US.S_ITS ---
LIMITED ULTRASOUND OF LEFT BREAST AND AXILLA: 01/05/2024 CLINICAL: Intermittent pain in left breast. Focal left breast pain. Comparison is made to exams dated: 01/05/2024 mammogram, 06/27/2023 mammogram, 06/20/2022 mammogram, 05/14/2021 mammogram, 07/03/2020 mammogram, and 01/03/2020 mammogram - [facility]. Real-time ultrasound of the left breast 12-3 o'clock, and axilla regions was performed. Dunaway scale images of the real-time examination were reviewed. No significant abnormalities were seen sonographically in the left breast. Specifically, no finding to explain the patient's pain. IMPRESSION: NEGATIVE There is no sonographic correlate to the patient's pain and no evidence of malignancy. Return to annual mammogram screening schedule is recommended. Findings and recommendations were conveyed to the patient at time of exam. This exam was interpreted at Station ID: [id number]. Electronically Signed By: Karin bocanegra/:01/05/2024 10:56:26 letter sent: Normal Exam Ultrasound BI-RADS: 1 Negative
== END ==
PROVIDERS: PCP Family Medicine; Referring Provider Family Medicine; Visit Provider Family Medicine
DX: N64.4 Mastodynia (principal); R92.1 Mammographic calcification found on diagnostic imaging of breast; R92.332 Mammographic heterogeneous density, left breast
CPT/HCPCS: 76642; 77065; G0279

== ENCOUNTER → 2024-07-02 17:26 | Outpatient (CLI) | payer OTHER, SELFPAY ==
[2024-07-02 17:51] LABS: Hematocrit 41.3 % (36-46); Hemoglobin 13.6 g/dL (12.0-16.0); Mean Corpuscular HGB Conc 32.8 % (30-36); Mean Corpuscular Hemoglobin 27.7 PG (26-34); Mean Corpuscular Volume 84.6 fL (80-100); Platelet Count 443 X10^3/uL (150-400); Red Blood Cell Count 4.89 X10^6/uL (4.0-5.2); Red Cell Distribution Width 13.4 % (11.6-14.8); White Blood Cell Count 5.1 X10^3/uL (4.5-11.0)
[2024-07-02 18:29] LABS: Alanine Aminotransferase 33 IU/L (<35); Albumin Globulin Ratio 1.8 (1.0-2.8); Alkaline Phosphatase 98 U/L (38-126); Aspartate Aminotransferase 38 IU/L (14-36); BUN Creatinine Ratio 27.3 (6-22); Bilirubin Total 0.1 mg/dL (0.2-1.3); Blood Urea Nitrogen 21 mg/dL (7-17); Calcium 10.5 mg/dL (8.4-10.2); Carbon Dioxide 30 mmol/L (22-32); Chloride 100 mmol/L (98-107); Cholesterol 246 mg/dL (140-199); Estimated Glomerular Filt Rate > 60 mL/min (>60); Globulin 2.8 g/dL (1.7-4.1); Glucose 92 mg/dL (70-100); HDL Cholesterol 86 mg/dL (40-60); HEMOLYSIS < 15 (0-50); LDL Cholesterol Calculated 140 mg/dL (<100); Potassium 4.5 mmol/L (3.4-5.1); Sodium 139 mmol/L (137-145); Total Protein 7.8 g/dL (6.3-8.2); Triglycerides 102 mg/dL (35-150)
[2024-07-02 19:54] LABS: Neutrophils Absolute Manual 2091 /uL (3000-5900); Platelet Estimate Adequate on smear; RBC Morphology Normal Morphology; Total Cells Counted 100
[2024-07-09 06:38] LABS: Percent Free Testosterone 2.53 % (0.50-2.80); Testosterone Free 0.27 ng/dL (0.10-0.85); Testosterone Total 10.6 ng/dL (.)
== END ==
PROVIDERS: PCP Family Medicine; Referring Provider Family Medicine; Visit Provider Family Medicine
DX: D72.819 Decreased white blood cell count, unspecified (principal); D75.839 Thrombocytosis, unspecified; E78.5 Hyperlipidemia, unspecified; Z79.890 Hormone replacement therapy
CPT/HCPCS: 36415; 80053; 80061; 84402; 84403; 85025

== ENCOUNTER → 2024-07-19 08:46 | Outpatient (CLI) | payer OTHER, SELFPAY ==
[2024-07-19 09:39] LABS: HEMOLYSIS < 15 (0-50)
[2024-07-19 09:45] LABS: Iron 54 ug/dL (37-170)
[2024-07-19 09:50] LABS: Percent Iron Saturation 17 % (15-50); Total Iron Binding Capacity 325 ug/dL (265-497); Transferrin 275 mg/dL (206-381)
[2024-07-19 10:07] LABS: Hematocrit 40.4 % (36-46); Hemoglobin 13.6 g/dL (12.0-16.0); Mean Corpuscular HGB Conc 33.6 % (30-36); Mean Corpuscular Hemoglobin 28.6 PG (26-34); Mean Corpuscular Volume 85.2 fL (80-100); Platelet Count 420 X10^3/uL (150-400); Red Blood Cell Count 4.74 X10^6/uL (4.0-5.2); Red Cell Distribution Width 13.6 % (11.6-14.8); White Blood Cell Count 3.9 X10^3/uL (4.5-11.0)
[2024-07-19 10:14] LABS: Alanine Aminotransferase 28 IU/L (<35); Albumin 4.5 g/dL (3.5-5.0); Albumin Globulin Ratio 1.9 (1.0-2.8); Alkaline Phosphatase 93 U/L (38-126); Aspartate Aminotransferase 29 IU/L (14-36); BUN Creatinine Ratio 22.5 (6-22); Bilirubin Total 0.3 mg/dL (0.2-1.3); Blood Urea Nitrogen 16 mg/dL (7-17); Calcium 9.7 mg/dL (8.4-10.2); Carbon Dioxide 27 mmol/L (22-32); Chloride 106 mmol/L (98-107); Estimated Glomerular Filt Rate > 60 mL/min (>60); Globulin 2.4 g/dL (1.7-4.1); Glucose 111 mg/dL (70-100); HEMOLYSIS < 15 (0-50); Potassium 4.6 mmol/L (3.4-5.1); Sodium 140 mmol/L (137-145); Total Protein 6.9 g/dL (6.3-8.2)
[2024-07-19 10:40] LABS: Vitamin D 25 Hydroxy (D3) 47.9 ng/mL (30.0-100.0)
[2024-07-19 10:44] LABS: Ferritin 34 ng/mL (11-264)
[2024-07-19 13:02] LABS: Neutrophils Absolute Manual 1911 /uL (3000-5900); RBC Morphology Normal Morphology; Total Cells Counted 100
[2024-07-21 05:08] LABS: Insulin Level Total 8.7 uIU/mL (2.6-24.9)
[2024-07-21 06:08] LABS: Calcium 9.8 mg/dL (8.7-10.2); Parathyroid Hormone, Intact 83 pg/mL (15-65)
== END ==
PROVIDERS: PCP Family Medicine; Referring Provider Family Medicine; Visit Provider Family Medicine
DX: D75.839 Thrombocytosis, unspecified (principal); E88.810 Metabolic syndrome; E66.9 Obesity, unspecified; E83.52 Hypercalcemia; E55.9 Vitamin D deficiency, unspecified
CPT/HCPCS: 36415; 80053; 82306; 82310; 82728; 83525; 83540; 83550; 83970; 85025; 86140

== ENCOUNTER → 2024-09-17 07:45 | Outpatient (CLI) | payer OTHER, SELFPAY ==
[2024-09-17 08:21] LABS: Hematocrit 38.5 % (36-46); Hemoglobin 13.1 g/dL (12.0-16.0); Mean Corpuscular Hemoglobin 28.4 PG (26-34); Mean Corpuscular Volume 83.4 fL (80-100); Platelet Count 453 X10^3/uL (150-400); Red Blood Cell Count 4.62 X10^6/uL (4.0-5.2); Red Cell Distribution Width 13.1 % (11.6-14.8); White Blood Cell Count 4.7 X10^3/uL (4.5-11.0)
[2024-09-17 08:45] LABS: Alanine Aminotransferase 27 IU/L (<35); Albumin 4.5 g/dL (3.5-5.0); Albumin Globulin Ratio 1.7 (1.0-2.8); Alkaline Phosphatase 94 U/L (38-126); Aspartate Aminotransferase 31 IU/L (14-36); BUN Creatinine Ratio 27.1 (6-22); Bilirubin Total 0.3 mg/dL (0.2-1.3); Blood Urea Nitrogen 19 mg/dL (7-17); Calcium 9.2 mg/dL (8.4-10.2); Carbon Dioxide 23 mmol/L (22-32); Chloride 109 mmol/L (98-107); Estimated Glomerular Filt Rate > 60 mL/min (>60); Globulin 2.6 g/dL (1.7-4.1); Glucose 107 mg/dL (70-99); HEMOLYSIS < 15 (0-50); Potassium 3.9 mmol/L (3.4-5.1); Sodium 140 mmol/L (137-145); Total Protein 7.1 g/dL (6.3-8.2)
[2024-09-17 08:46] LABS: HEMOLYSIS < 15 (0-50); Iron 55 ug/dL (37-170)
[2024-09-17 08:58] LABS: Percent Iron Saturation 17 % (15-50); Total Iron Binding Capacity 320 ug/dL (265-497); Transferrin 283 mg/dL (206-381)
[2024-09-17 09:19] LABS: Ferritin 28 ng/mL (11-264)
[2024-09-19 03:08] LABS: Calcium 9.5 mg/dL (8.7-10.2); Parathyroid Hormone, Intact 72 pg/mL (15-65)
[2024-09-19 05:11] LABS: Insulin Level Total 8.6 uIU/mL (2.6-24.9)
== END ==
PROVIDERS: PCP Family Medicine; Referring Provider Family Medicine; Visit Provider Family Medicine
DX: E21.3 Hyperparathyroidism, unspecified (principal); R73.03 Prediabetes; D72.819 Decreased white blood cell count, unspecified; D64.9 Anemia, unspecified
CPT/HCPCS: 36415; 80053; 82310; 82728; 83525; 83540; 83550; 83970; 85027

== ENCOUNTER → 2025-04-07 17:42 | Outpatient (CLI) | payer OTHER, SELFPAY ==
--- NOTE | 2025-04-07 17:42 | DI.MG.S_ITS ---
MM screening mammo BI: 04/07/2025. BI-RADS: 1 CLINICAL: 59-year old female for bilateral screening mammogram. Tyrer-Cuzick lifetime risk of 20.0%. No personal or first-degree family history of breast cancer. The patient had a prior left breast biopsy. PRIOR EXAMS 01/05/2024, 06/27/2023, 07/11/2022, 06/20/2022, MAMMOGRAPHY TECHNIQUE: 2D and 3D (tomosynthesis) digital mammographic views obtained, with additional images as needed for full coverage. Current study was also evaluated with a Computer Aided Detection (CAD) system. DENSITY D. The breasts are extremely dense, which lowers the sensitivity of mammography. MAMMOGRAPHY FINDINGS Bilateral: No suspicious mass, asymmetry, microcalcification, or other abnormality seen. No significant change from comparison. IMPRESSION: * No evidence of malignancy. RECOMMENDATIONS Bilateral * According to the Tyrer-Cuzick Risk Assessment Model, based on the information provided your patient has a greater than 20% lifetime risk for developing breast cancer. Consider supplemental screening with breast MRI and participation in a high risk screening program. * Annual screening mammography. OVERALL ASSESSMENT CATEGORY BI-RADS-1: Negative. The [employer] recommends annual screening mammography beginning at age 40 for women with average risk of breast cancer. ELECTRONICALLY SIGNED: Karin Sanchez M.D. on 04/08/2025 at 11:41:05 AM PT Interpreting Station ID: [id number]
== END ==
LOC: MAMMO 17:42
PROVIDERS: PCP Family Medicine; Referring Provider Family Medicine; Visit Provider Family Medicine
DX: Z12.31 Encounter for screening mammogram for malignant neoplasm of breast (principal); R92.343 Mammographic extreme density, bilateral breasts
CPT/HCPCS: 77063; 77067